=== PATIENT | male | born 1985 | race Two or more races ===

== ENCOUNTER 2022-07-24 18:47 | Emergency (ER) | payer OTHER ==
[~2022-07-24] VITALS: Ht 175.3 cm; Wt 68.0 kg
== END 2022-07-24 21:29 | disposition home or self-care (01) ==
LOC: ER 18:47
DX: R55 Syncope and collapse (principal)

== ENCOUNTER 2022-09-11 22:06 | Emergency (ER) | payer OTHER ==
[~2022-09-11] VITALS: Ht 175.3 cm; Wt 68.0 kg
== END 2022-09-12 01:27 | disposition home or self-care (01) ==
LOC: ER 22:06
DX: R53.81 Other malaise (principal)